=== PATIENT | male | born 1995 | race Caucasian/White ===

== ENCOUNTER 2018-05-16 13:35 | Emergency (ER) | payer OTHER, BC ==
[2018-05-16] MEDS: IBUPROFEN 600 MG TAB PO (16:01)
== END 2018-05-16 17:53 | disposition home or self-care (01) ==
LOC: FTE 13:35
DX: S99.922A Unspecified injury of left foot, initial encounter (principal); X50.1XXA Overexertion from prolonged static or awkward postures, initial encounter; Y92.9 Unspecified place or not applicable
CPT/HCPCS: 73630; 99283-25

== ENCOUNTER 2018-06-06 18:20 | Emergency (ER) | payer SELFPAY, OTHER | END 2018-06-06 22:16 | disposition left against medical advice (07) | LOC: FTE 22:16 | DX: Z53.21 Procedure and treatment not carried out due to patient leaving prior to being seen by health care provider (principal) ==

== ENCOUNTER 2018-08-25 16:47 | Emergency (ER) | payer OTHER | END 2018-08-25 20:47 | disposition home or self-care (01) | LOC: FTE 16:47 | DX: H61.21 Impacted cerumen, right ear (principal); H66.91 Otitis media, unspecified, right ear | CPT/HCPCS: 99283; Z7502 ==